=== PATIENT | male | born 1975 | race Caucasian/White ===

== ENCOUNTER 2025-02-13 11:09 | Outpatient (CLI) | payer BC, SELFPAY | END 2025-02-13 11:10 | disposition home or self-care (01) | PROVIDERS: Visit Provider Family Medicine | DX: Z00.00 Encounter for general adult medical examination without abnormal findings (principal); R53.83 Other fatigue; Z13.6 Encounter for screening for cardiovascular disorders; Z12.5 Encounter for screening for malignant neoplasm of prostate | CPT/HCPCS: 80053; 80061; 84443; G0103 ==